=== PATIENT | female | born 1985 | race Hispanic/Latino ===

== ENCOUNTER 2017-03-29 06:03 | Emergency (ER) | payer OTHER ==
[~2017-03-29 06:03] MED LIST: FLEXERIL10 MG PO; IBUPROFEN800 M1 PO; MOBIC 15MG15 MG PO; PERCOCET 5-3251 EACH PO; VICODIN5-300 PO
--- NOTE | 2017-03-29 06:26 | ED GI/GU/ABDOMINAL COMPLAINT ---
History of Present Illness General Chief Complaint: Nausea, Vomiting, Diarrhea Stated Complaint: NVD Source: patient, old records Exam Limitations: no limitations Vital Signs & Intake/Output Vital Signs & Intake/Output Vital Signs Date Time Temp Pulse Resp B/P B/P Pulse O2 O2 Flow FiO2 Mean Ox Delivery Rate 03/29 0916 98.0 80 20 110/60 100 Room Air 03/29 0732 97.7 76 20 103/61 100 Room Air 03/29 0609 98.3 89 20 121/86 96 Room Air Allergies Coded Allergies: codeine (Intermediate, HIVES 10/21/16) NO KNOWN ALLERGIES (02/18/16) Triage Note: PER PT VOMITTING AND DIARRHEA X [address] VIERA HAD OUT PT BLOODWORK, WAS SUPPOSED TO COME FOR IV YESTERDAY BUT WAS TOO BUSY Triage Nurses Notes Reviewed? yes HPI: Patient presents for evaluation of constant diarrhea and intermittent vomiting for 3-4 weeks. Patient states she has been "sick for a while". She denies any associated fever, cold symptoms, I will contacts, recent travel or rashes. She states she is having a constant aching left upper quadrant abdominal pain for the past 3-4 days. She has been taking Zofran and Imodium without improvement of her symptoms (she took the medications yesterday after filling the prescriptions on Monday). (JOSE JACKSON,CAMILO Munson) Reconcile Medications Famotidine (Pepcid) 20 MG TABLET 1 TAB PO BID gastritis Hyoscyamine Sulfate (Levsin-Sl) 0.125 MG TAB.SUBL 1-2 TAB SL Q4P PRN abd pain LMP (ages 10-50): unknown ? n Is pt currently ? No Onset: 3 weeks Duration: week(s):, constant, continues in ED Timing: recent history Quality/Severity: aching, cramping, moderate, vomiting Location: left upper quadrant Radiation: no radiation Activities at Onset: eating (ham at friend's house) Prior Abdominal Problems: none Past Sexual History: Unobtainable at this time Modifying Factors: Worsens With: eating. Associated Symptoms: abdominal pain, diarrhea, fatigue, loss of appetite, nausea /vomiting, 10# weight loss (ACE JACKSON,TISHA) Past History Travel History Traveled to [place] past 21 day No Medical History Any Pertinent Medical History? 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 No (CAMILO GARCIA MD) Review of Systems Review of Systems Constitutional: Reports: no symptoms. EENTM: Reports: no symptoms. Respiratory: Reports: no symptoms. Cardiovascular: Reports: no symptoms. GI: Reports: see HPI. Genitourinary: Reports: no symptoms. Musculoskeletal: Reports: no symptoms. Skin: Reports: no symptoms. Neurological/Psychological: Reports: no symptoms. Hematologic/Endocrine: Reports: no symptoms. Immunologic/Allergic: Reports: no symptoms. All Other Systems: Reviewed and Negative (JOSE JACKSON,CAMILO Munson) Physical Exam Physical Exam Gastrointestinal: normal bowel sounds (SEE), SEE BELOW (JOSE JACKSON,CAMILO Munson) Core Measures ACS in differential dx? No Severe Sepsis Present: No Septic Shock Present: No (TISHA BELLO MD) Progress Plan of Care: Orders Procedure Date/time Status URINALYSIS 03/29 626 Complete LIPASE 03/29 626 Complete HUMAN BETA HCG SCREEN 03/29 626 Complete Laboratory Tests 03/29/17 0725: Urine Color STRAW, Urine Clarity CLEAR, Urine pH 6.0, Ur Specific [place] 1.010, Urine Protein NEG, Urine Ketones TRACE H, Urine Nitrite NEG, Urine Bilirubin NEG, Urine Urobilinogen 0.2, Ur Leukocyte Esterase NEG, Ur Microscopic EXAM NOT REQUIRED, Urine Hemoglobin NEG, Urine Glucose NEG 03/29/17 0615: Lipase 43, Total Beta HCG NEGATIVE Comments: 03/29/2017 6:59:12 AM 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 (JOSE JACKSON,CAMILO Munson) Differential Diagnosis: ectopic , gastritis, kidney stone, PUD/GERD Diagnostic Imaging: Viewed by Me: CT Scan. Discussed w/RAD: CT Scan. Radiology Impression: No acute abnormality. No etiology for left-sided pain. Specifically there is no evidence of urinary obstruction, pancreatic abnormality or left lower chest disease. There is no splenomegaly or colonic wall thickening Initial ED EKG: none (TISHA BELLO MD) Departure Departure Condition: Stable Departure Forms: Customer Survey General Discharge Information (CAMILO GARCIA MD) Departure Time of Disposition: 815 Disposition: HOME OR SELF CARE Clinical Impression Primary Impression: Gastritis and duodenitis Secondary Impressions: Dehydration syndrome Referrals: ROSEMARY JACKSON,BALDEMAR (PCP/Family) VISHNU HERNANDEZ MD Call for GI follow up Prescriptions: Current Visit Scripts Hyoscyamine Sulfate (Levsin-Sl) 1-2 TAB SL Q4P PRN abd pain #60 TAB Famotidine (Pepcid) 1 TAB PO BID #60 TAB (TISHA BELLO MD) Prescriptions: Current Visit Scripts Hyoscyamine Sulfate (Levsin-Sl) 1-2 TAB SL Q4P PRN abd pain #60 TAB Promethazine HCl 1 TAB PO Q6-8 PRN nausea/vomiting #20 TAB Famotidine (Pepcid) 1 TAB PO BID #60 TAB (TISHA BELLO MD)
--- NOTE | 2017-03-29 07:59 | CT SCAN REPORT ---
EXAMINATION: CT ABDOMEN AND PELVIS WITH CONTRAST CLINICAL INFORMATION: Colitis. Splenomegaly. Left upper quadrant pain. Tenderness COMPARISON: Portions of a CT 09/27/15 obtained without IV contrast TECHNIQUE: Multidetector volumetric imaging was performed of the abdomen and pelvis before and after the IV administration of 95 mL of Optiray 320 intravenous contrast. Sagittal and coronal reformatted images were obtained on the technologist's workstation. DLP: 389 mGy-cm FINDINGS: LUNG BASES: No suspicious abnormality in the visualized lower chest LIVER, GALLBLADDER, AND BILIARY TREE: The liver contour is smooth. There is a subtle small area of decreased attenuation along the right side of the falciform ligament. This is a common location for focal fatty change or perfusion abnormality. No mass effect. No other focal abnormality. The gallbladder is distended. No calcified gallstone. No pericholecystic fluid. There is no biliary dilation. PANCREAS: Within normal limits SPLEEN: The spleen contour is smooth. The attenuation is homogeneous. The spleen span is 9.4 cm which is within normal limits. ADRENAL GLANDS: Within normal limits KIDNEYS AND URETERS: There is no dilation of the intrarenal collecting system. There is no definite calculus or perinephric collection. There is a tiny probable cyst in the mid left kidney. No suspicious mass. There is no significant ureteral dilation. No ureteral calculus demonstrated. BLADDER: Within normal limits GASTROINTESTINAL TRACT: No localized area of colonic wall thickening. The appendix appears normal. There is no small bowel dilation. No definite abnormality the stomach. ABDOMINAL WALL: No significant hernia is appreciated. LYMPH NODES: There are no enlarged abdominal or pelvic lymph nodes. There is no free peritoneal fluid. VASCULAR: There is no abdominal aortic aneurysm. The portal vein enhances. There is no free peritoneal fluid. PELVIC VISCERA: Within normal limits OSSEOUS STRUCTURES: No suspicious bony lesion. IMPRESSION: No acute abnormality. No etiology for left-sided pain. Specifically there is no evidence of urinary obstruction, pancreatic abnormality or left lower chest disease. There is no splenomegaly or colonic wall thickening
[2017-03-29] MEDS ORDERED: PEPCID20 M1 PO (08:19)
[2017-03-29] MEDS ORDERED: PROMETHAZINE12.5 M2 PO (08:19)
[2017-03-29] MEDS ORDERED: LEVSIN-SL0.125 MG SL (08:19)
[2017-03-29 09:16] VITALS: BP 110/60
== END 2017-03-29 09:16 ==
LOC: ERH 06:03
DX: K29.70 Gastritis, unspecified, without bleeding (principal); K29.80 Duodenitis without bleeding; E86.0 Dehydration
CPT/HCPCS: 74177; 81003; 96361; 96374; 96375; J2550; Q9965